=== PATIENT | male | born 1995 | race Caucasian/White ===

== ENCOUNTER 2018-04-11 11:59 | Emergency (ER) | payer MEDICAID ==
[~2018-04-11] VITALS: Ht 175.3 cm; Wt 78.5 kg
[2018-04-11 12:06] VITALS: Ht 175.3 cm; Wt 78.5 kg
[2018-04-11 13:54] VITALS: BP 138/71
== END 2018-04-11 13:54 | disposition home or self-care (01) ==
LOC: ED 11:59
DX: J20.9 Acute bronchitis, unspecified (principal)
CPT/HCPCS: Q0092

== ENCOUNTER 2018-05-24 17:57 | Emergency (ER) | payer MEDICAID ==
[~2018-05-24] VITALS: Ht 175.3 cm; Wt 80.3 kg
[2018-05-24 18:07] VITALS: Ht 175.3 cm; Wt 80.3 kg
[2018-05-24 19:56] VITALS: BP 135/95
== END 2018-05-24 19:56 | disposition home or self-care (01) ==
LOC: ED 17:57
DX: L03.031 Cellulitis of right toe (principal)

== ENCOUNTER 2018-06-17 16:10 | Emergency (ER) | payer MEDICAID ==
[~2018-06-17] VITALS: Ht 175.3 cm; Wt 79.8 kg
[2018-06-17 16:54] VITALS: BP 122/75
== END 2018-06-17 16:54 | disposition home or self-care (01) ==
LOC: ED 16:10
DX: J02.9 Acute pharyngitis, unspecified (principal)